=== PATIENT | male | born 1990 | race Caucasian/White ===

== ENCOUNTER 2016-11-18 12:13 | Observation (INO) | payer OTHER ==
[2016-11-18] MEDS ORDERED: fentaNYL 100 MCG/2 ML INJ IVP ONE (13:55)
[2016-11-18] MEDS ORDERED: IOPAMIDOL (ISOVUE-300) 100 ML BTL ONE (14:07)
[2016-11-18 14:58] LABS: % IMMATURE GRANULYOCYTES 0.4 % (0.0-1.1); ABSOLUTE IMMATURE GRANULOCYTES 0.06 10^3/uL (0.00-0.10); ADD DIFF? NO; ADD MORPH? NO; ADD SCAN? NO; ATYPICAL LYMPHOCYTE FLAG 0 (0-99); FRAGMENT RBC FLAG 0 (0-99); HEMATOCRIT 43.8 % (40.0-51.0); HEMOGLOBIN 15.6 g/dL (13.7-17.5); LEFT SHIFT FLG 10 (0-99); LIPEMIA HEMOLYSIS FLAG 90 (0-99); MEAN CELL HEMOGLOBIN 30.6 pg (27.9-34.1); MEAN CELL HEMOGLOBIN CONCENTR. 35.6 g/dL (32.4-36.7); MEAN CELL VOLUME 86.1 fL (81.5-99.8); MEAN PLATELET VOLUME 11.1 fL (8.7-11.7); PLATELET CLUMPS FLAG 0 (0-99); PLATELET COUNT 194 10^3/uL (150-400); RED BLOOD CELL COUNT 5.09 10^6/uL (4.40-6.38); RED CELL DISTRIBUTION WIDTH 12.8 % (11.5-15.2)
[2016-11-18 15:05] LABS: ANION GAP 16 mEq/L (8-16); CALCIUM 10.7 mg/dL (8.5-10.4); CARBON DIOXIDE 21 mEq/l (22-31); CHLORIDE 105 mEq/L (97-110); CREATININE 1.1 mg/dL (0.7-1.3); GLOMERULAR FILTRATION RATE > 60; GLUCOSE 90 mg/dL (70-100); POTASSIUM 3.9 mEq/L (3.5-5.2); SODIUM 142 mEq/L (134-144)
[2016-11-18 15:19] LABS: APTT 26.3 SEC (23.0-38.0); INR 1.04 (0.83-1.16); PROTIME(PATIENT) 13.5 SEC (12.0-15.0)
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
[2016-11-18] MEDS ORDERED: ACETAMINOPHEN 325 MG TAB PO PRN (17:14)
[2016-11-18] MEDS ORDERED: ONDANSETRON DISINTEGRATING 4 MG TAB PO PRN (17:14)
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
[2016-11-18] MEDS: HYDROCODONE/APAP 5/325 TAB PO PRN (20:06)
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
[2016-11-18 21:39] LABS: HEMOGLOBIN 12.9 g/dL (13.7-17.5); MEAN CELL HEMOGLOBIN 30.6 pg (27.9-34.1); MEAN CELL HEMOGLOBIN CONCENTR. 34.9 g/dL (32.4-36.7); MEAN CELL VOLUME 87.7 fL (81.5-99.8); RED BLOOD CELL COUNT 4.22 10^6/uL (4.40-6.38); RED CELL DISTRIBUTION WIDTH 13.1 % (11.5-15.2)
[2016-11-19] MEDS: HYDROCODONE/APAP 5/325 TAB PO PRN (02:46)
[2016-11-19] MEDS: IBUPROFEN 600 MG TAB PO SCH ×4 (02:47→21:01)
[2016-11-19] MEDS: BACITRACIN ZINC 14.2 GM OINTTUBE TP SCH ×3 (04:44→21:03)
--- NOTE | 2016-11-19 07:11 | SOAPPROG ---
[facility] Progress Note Assessment/Plan: Assessment: 26y RHD M p/w Left closed, displaced distal radius intra-articular fracture, ulnar styloid fracture, and radial head fracture Plan: - The distal radius fracture requires operative fixation, in my opinion, given the intra-articular extent and unstable wrist without fixation - The ulnar styloid and radial head fractures are nonoperative in my opinion, pending an intraoperative exam of the DRUJ (which I expect to be stable after fixation) - The patient and his family are looking into what out of pocket costs may be incurred by having his surgery done here. In my opinion, it is preferable to have the patient fly home and have the wrist surgery performed at home where he can get longitudinal followup. However, that is only if the surgery can be done expediently. He is young and the surgery should be done soon. That is, if he might wait weeks at home before getting the surgery performed, he is better off having the surgery done here and then having at least initial followup with me before he goes home. - I defer the question as to whether the patient can safely travel in the air due to his spleen/rib injury to the trauma team. Given that his arm is adequately splinted right now, I do not think the arm fractures prevent him from travelling by air. - I will have case management contact me to clarify on his social situation. I am happy to help him with this difficult situation. 11/19/16 07:02 Subjective: Pain much better controlled since reduction and splinting. Has been icing and elevating on his chest overnight Objective: Vital Signs Temp Pulse Resp BP Pulse Ox 36.9 C 68 15 113/65 95 11/19/16 04:00 11/19/16 04:00 11/19/16 04:00 11/19/16 04:00 11/19/16 04:00 Laboratory Results 11/18/16 21:27 11/18/16 11/19/16 11/20/16 05:59 05:59 05:59 Intake Total 2300 Balance 2300 PT 13.5 SEC (12.0-15.0) 11/18/16 13:40 INR 1.04 (0.83-1.16) 11/18/16 13:40 WWP LUE. Wiggling all L fingers and thumb. SILT A/R/U/M. BCR x 5. ICD10 Worksheet Patient Problems: Problems Problem Status Onset Closed injury of spleen Acute Left radial head fracture Acute Rib fracture Acute Wrist fracture, left Acute
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
[2016-11-19 10:43] LABS: % IMMATURE GRANULYOCYTES 0.5 % (0.0-1.1); ABSOLUTE IMMATURE GRANULOCYTES 0.04 10^3/uL (0.00-0.10); ADD DIFF? NO; ADD MORPH? NO; ADD SCAN? NO; ATYPICAL LYMPHOCYTE FLAG 0 (0-99); FRAGMENT RBC FLAG 0 (0-99); HEMATOCRIT 38.3 % (40.0-51.0); HEMOGLOBIN 13.6 g/dL (13.7-17.5); LEFT SHIFT FLG 0 (0-99); LIPEMIA HEMOLYSIS FLAG 90 (0-99); MEAN CELL HEMOGLOBIN 31.1 pg (27.9-34.1); MEAN CELL HEMOGLOBIN CONCENTR. 35.5 g/dL (32.4-36.7); MEAN CELL VOLUME 87.4 fL (81.5-99.8); MEAN PLATELET VOLUME 10.6 fL (8.7-11.7); PLATELET CLUMPS FLAG 10 (0-99); PLATELET COUNT 145 10^3/uL (150-400); RED BLOOD CELL COUNT 4.38 10^6/uL (4.40-6.38); RED CELL DISTRIBUTION WIDTH 13.2 % (11.5-15.2)
[2016-11-19 11:09] LABS: CALCIUM 9.6 mg/dL (8.5-10.4); CREATININE 0.9 mg/dL (0.7-1.3)
[2016-11-19 11:22] LABS: PTH INTACT NO MINERALS 51.8 pg/ml (10.8-79.4)
[2016-11-19] MEDS ORDERED: LR 1,000 ML IV SCH (13:00)
--- NOTE | 2016-11-19 13:05 | SOAPPROG ---
Downtime Inpatient MD Late Entry SOAP Note: Repeat Ca++ 9.6/PTH wnl
[2016-11-20] MEDS ORDERED: LR 1,000 ML IV SCH (03:00)
[2016-11-20] MEDS: IBUPROFEN 600 MG TAB PO SCH ×2 (06:36→13:58)
[2016-11-20] MEDS: BACITRACIN ZINC 14.2 GM OINTTUBE TP SCH (09:00)
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
[2016-11-20] MEDS ORDERED: ceFAZolin 2 GM/DEXTROSE 100 ML IV ONE (20:31)
[2016-11-20] MEDS ORDERED: LR 1,000 ML IV ONE (20:40)
[2016-11-20] MEDS ORDERED: CEFAZOLIN 2 GM/DEXTROSE/100 ML BAG IV ONE (20:42)
[2016-11-20] MEDS ORDERED: BUPIVACAINE/EPI 0.5% 30 ML SDV ONE (20:49)
[2016-11-20] MEDS ORDERED: MIDAZOLAM 2 MG/2 ML VIAL ONE (20:49)
[2016-11-20] MEDS ORDERED: BUPIVACAINE 0.25% 30 ML SDV ONE (20:50)
[2016-11-20] MEDS ORDERED: MIDAZOLAM 2 MG/2 ML VIAL IVP ONE (20:53)
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
[2016-11-20] MEDS ORDERED: PROPOFOL/EMULSION 500 MG/50 ML BOTTLE IV ONE (20:56)
[2016-11-20] MEDS ORDERED: fentaNYL 100 MCG/2 ML INJ ONE ×3 (20:57→22:15)
[2016-11-20] MEDS ORDERED: ONDANSETRON 4 MG/2 ML VIAL IVP PRN (21:15)
[2016-11-20] MEDS ORDERED: HYDROmorphONE/DILAUDID 1 MG/ML SYR IVP PRN (21:15)
[2016-11-20] MEDS ORDERED: fentaNYL 100 MCG/2 ML INJ IVP PRN (21:15)
[2016-11-20] MEDS ORDERED: NALOXONE HCL 0.4 MG/ML INJ IVP PRN (21:15)
[2016-11-20] MEDS ORDERED: PROMETHAZINE HCL 25 MG/ML INJ IVP PRN (21:15)
--- NOTE | 2016-11-20 23:28 | POSTOPPROG ---
Post Op Note Date of Operation: 11/20/16 Surgeon: Juan Ramon Martell Anesthesia: LMA Pre-op Diagnosis: Left distal radius, ulnar styloid, and radial head fracture Post-op Diagnosis: Same Procedure: ORIF Left distal radius Inf/Abcess present in the surg proc area at time of surgery?: No EBL: 50-100 (75min tourniquet time)
[2016-11-20] MEDS ORDERED: hydrOXYzine HCL 25 MG TAB PO PRN (23:30)
[2016-11-20] MEDS ORDERED: ACETAMINOPHEN 500 MG TAB PO PRN (23:38)
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
[2016-11-21] MEDS: BACITRACIN ZINC 14.2 GM OINTTUBE TP SCH ×2 (00:27→11:44)
[2016-11-21] MEDS: IBUPROFEN 600 MG TAB PO SCH (00:29)
[2016-11-21] MEDS: HYDROmorphONE/DILAUDID 1 MG/ML SYR IVP PRN ×2 (00:37→03:43)
[2016-11-21] MEDS: oxyCODONE IR 5 MG TAB PO PRN ×4 (00:37→12:44)
[2016-11-21] MEDS: ceFAZolin 2 GM/DEXTROSE 100 ML IV SCH ×2 (05:26→13:31)
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
[2016-11-21 07:38] VITALS: BP 130/74; PULSE 76; RESP 15; TEMP 98.4; O2SAT 96
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
== END 2016-11-21 15:02 | disposition home or self-care (01) ==
LOC: INTOOBSV 15:02 → F3N 17:26
PROVIDERS: ADMIT Surgery; ATTEND Surgery
PROC: 0PSJXZZ Reposition Left Radius, External Approach (ICD-10-PCS; 2016-11-18)
PROC: 0PSJ04Z Reposition Left Radius with Internal Fixation Device, Open Approach (ICD-10-PCS; principal; 2016-11-20 21:00)
DX: S52.562A Barton's fracture of left radius, initial encounter for closed fracture (principal); S52.612A Displaced fracture of left ulna styloid process, initial encounter for closed fracture; S52.122A Displaced fracture of head of left radius, initial encounter for closed fracture; S62.002K Unspecified fracture of navicular [scaphoid] bone of left wrist, subsequent encounter for fracture with nonunion; S22.32XA Fracture of one rib, left side, initial encounter for closed fracture; S36.899A Unspecified injury of other intra-abdominal organs, initial encounter; S36.030A Superficial (capsular) laceration of spleen, initial encounter; Y93.55 Activity, bike riding; V18.0XXA Pedal cycle driver injured in noncollision transport accident in nontraffic accident, initial encounter; Y92.413 State road as the place of occurrence of the external cause; T14.8 Other injury of unspecified body region; Y99.8 Other external cause status
CPT/HCPCS: 25605; 25608; 71020; 73070; 73080; 73090; 73100; 73110; 73200; 74177; 97161; 97165; C1769; G0378; 82947-QW; 96374; C1713; J0690; J1170; J2250; J2704; J3010; Q9967